=== PATIENT | female | born 1975 | race Caucasian/White ===

== ENCOUNTER 2017-06-30 00:27 | Emergency (ER) | payer SELFPAY ==
[2017-06-30] MEDS ORDERED: NS 1000 ML 1,000 ML IV ONE ×2 (00:30→02:49)
[2017-06-30] MEDS ORDERED: NS 1000 ML 1,000 ML ONE ×3 (00:34→02:55)
[2017-06-30 00:50] VITALS: BMI 20.7
--- NOTE | 2017-06-30 01:09 | DR.GENAD ---
HPI - PCP Primary Care Physician: nfd - Complaint/Symptoms Chief Complaint:: pt feels like she is going to black out. has not slept for a couple of days. hasn't not had an appetite for a couple of days. States she thinks she maybe dehydrated because she has been taking xanax for anxiety and she has been out of them for a while and she was nervous so she did some meth earlier today and she felt like she was having SOB, light headed like she was going to pass out with her hear beating fast about 1-2 hours ago. states she has not eaten anything in two days. She denies chest pain, SOB, nausea, vomiting cold or cough. States her last menstrual period was Jun 03. She denies any recent trauma. She denies vaginal bleeding or discharge. She denies hematuria or volodymyr. - Nurses notes reviewed Nurses Notes Review: Yes - Source History Provided: Patient - Mode of Arrival Mode of Arrival: Ambulatory - Timing Onset of Chief Complaint: 06/30/17 Came on: Gradually - Duration Duration: Intermittent How lon Duration: Hours - Location Location: weakness, dizzines - Severity Severity: Moderate - Modifying Factors Worsens:: nothing Improves:: nothing PMH - PMH Past Medical History: No Past Medical History: Hypertension Past Surgical History: No - Family History History of Family Medical Conditions: No Family Medical History: Diabetes Mellitus, Cancer, CA, Coronary Artery Disease, Heart Failure, Hypertension - Social History Does patient currently use any type of tobacco product: Yes Have you used tobacco products in the last 12 months: Yes Type of Tobacco Use: Cigarettes How many years tobacco product used: 18 Does any household member use tobacco: No Alcohol Use: None Do you use any recreational Drugs:: Yes (meth) Lives With: Mom Lives Where: Home - infectious screening Have you traveled outside the country in the last 6 months?: No Isolation: Standard ROS - Review of Systems Constitutional: No Symptoms Reported, Weakness, Fatigue, Loss of Appetite. negative: See HPI, Chills, Diaphoresis, Fever, Malaise, Irritable, Other Eyes: No Symptoms Reported ENTM: No Symptoms Reported. negative: See HPI, Ear Pain, Ear Discharge, Pulling on Ears, Hearing Loss, Nose Pain, Nose Discharge, Epistaxis, Nose Congestion, Mouth Pain, Mouth Swelling, Loose Teeth, Drooling, Throat Pain, Throat Swelling, Ear Foreign Body Respiratoy: No Symptoms Reported, Non-Productive Cough. negative: See HPI, Productive Cough, Moist Cough, Dry Cough, Hacking Cough, Barking Cough, Brassy Cough, Orthopnea, Short of Breath, Stridor, Wheezing, Hemoptysis, Other Cardiovascular: No Symptoms Reported, Chest Pain. negative: See HPI, Edema, Palpitations, Syncope, Cyanosis, Skin Mottling, Other Gastrointestinal/Abdominal: No Symptoms Reported. negative: See HPI, Abdominal Pain, Constipation, Diarrhea, Nausea, Vomiting, Food Intolerance, Other Genitourinary: No Symptoms Reported, Frequency. negative: See HPI, Discharge, Dysuria, Hematuria, Pain, Bleeding, Other Neurological: No Symptoms Reported, Anxiety, Emotional Problems, Dizziness. negative: See HPI, Depressed, Headache, Numbness, Paresthesia, Pre-existing Deficit, Seizure, Tingling, Tremors, Weakness, Problems Walking, Speech Problem , Other Musculoskeletal: No Symptoms Reported Integumentary: No Symptoms Reported Hematologic/Lymphatic: No Symptoms Reported Endocrine: No Symptoms Reported, Unexplained Weight Loss Psychiatric: No Symptoms Reported PE - Vital Signs Vitals: Temperature 97.3 F Pulse Rate 163 Respiratory Rate 20 Blood Pressure 87/65 O2 Sat by Pulse Oximetry 98 - General Limitations: No Limitations General Appearance: Alert, In Distress (moderate), Cachectic - Head Head Exam: Normal Inspection, Atraumatic, Normocephalic - Eyes Eye exam: Normal Appearance, PERRL, EOMI. negative: Scleral Icterus, Conjunctival Injection, Nystagmus, Miosis, Mydrasis, Periorbital Swelling, Periorbital Tenderness, Other - ENT ENT Exam: Normal Exam, Normal Oropharynx, Normal External Ear Exam, Mucous Membranes Moist, TM's Normal Bilaterally External Ear Exam: Normal External Inspection TM/Canal Exam: Bilateral Normal Nose Exam: Normal Nose Exam Mouth Exam: Normal Inspection Throat Exam: Normal Inspection. negative: Tonsillar Erythema, Tonsillomegaly, Tonsillar Exudate, R Peritonsillar Mass, L Peritonsillar Mass, Muffled Voice, Other - Neck Neck Exam: Normal Inspection, Full ROM, Trachea Midline. negative: Tenderness, Meningismus, Lymphadenopathy, Thyromegaly, Other - Chest Chest Inspection: Normal Inspection, Symmetric Chest Wall Rise. negative: Tenderness, Rash, Abscess, Other - Respiratory Respiratory Exam: Normal Lung Sounds Bilat Respiratory Exam: Bilateral Clear to Auscultation - Cardiovascular Cardiovascular Exam: Regular Rate, Normal Rhythm, Normal Heart Sounds. negative : Bradycardia, Tachycardia, Irregular Rhythm, Systolic Murmur, Diastolic Murmur , Rubs, Gallop, Clicks, JVD, +S1, +S2, +S3, +S4, Other - Abdominal Exam Abdominal Exam: Normal Inspection, Normal Bowel Sounds, Soft. negative: Distention, Tenderness, Guarding, Rebound, Rigidity, Dimnished Bowel Sounds, Hyperactive Bowel Sounds, Hypoactive Bowel Sounds, Organomegaly, Trauma, Incision, Ascites, Mass, Bruit, Pulsatile Mass, Hernia, Other Abdominal Tenderness: negative: RUQ, RLQ, LUQ, LLQ, Epigastrium, Suprapubic, Diffuse, Mild, Moderate, Severe, Other - Extremities Extremities Exam: Normal Inspection, Full ROM, Normal Capillary Refill. negative: Tenderness, Edema, Joint Swelling, Calf Tenderness, Other - Back Back Exam: Normal Inspection, Full ROM. negative: Tenderness, (R) CVA Tenderness, (L) CVA Tenderness, Muscle Spasm, Paraspinal Tenderness, Vertebral Tenderness, Rashes, (R) Sciatic Notch Tenderness, (L) Sciatic Notch Tendern, (R ) Straight Leg Raise, (L) Straight Leg Raise, Other - Neurologic Neurological Exam: Alert, Oriented X3, CN II-XII Intact, Reflexes Normal. negative: Normal Gait (gait not tested) - Psychiatric Psychiatric Exam: Normal Affect, Normal Mood. negative: Depressed, Agitated, Anxious, Flat Affect, Manic, Homicidal Ideation, Suicidal Ideation, Other - Skin Skin Exam: Warm, Dry, Intact, Normal Color ROR - Labs Reviewed Result Diagrams: 06/30/17 01:18 06/30/17:18 Laboratory: WBC 4.1 X10^3/uL (3.6-10.0) 06/30/17:18 RBC 4.35 X10^6/uL (3.5-5.4) 06/30/17:18 Hgb 12.8 g/dL (12.0-16.0) 06/30/17:18 Hct 38.2 % (36.0-47.0) 06/30/17:18 MCV 87.7 fL (80.0-100.0) 06/30/17:18 MCH 29.5 pg (27.0-34.0) 06/30/17 01:18 MCHC 33.6 g/dL (33.0-35.0) 06/30/17 01:18 RDW 15.9 % (11.6-16.5) 06/30/17 01:18 Plt Count 155 X10^3/uL (150.0-450.0) 06/30/17 01:18 MPV 8.4 fL (7.4-11.0) 06/30/17 01:18 Neut % 56.2 % (42.0-75.0) 06/30/17 01:18 Lymph % 29.6 % (21.0-51.0) 06/30/17 01:18 Cooper % 10.3 % (0.0-13.0) 06/30/17 01:18 Eos % 2.8 % (0.9-2.9) 06/30/17 01:18 Baso % 1.1 % (0.2-1.0) H 06/30/17 01:18 Neut # 2.3 x10^3/uL (2.2-4.8) 06/30/17 01:18 Lymph # 1.2 X10^3/uL (1.3-2.9) L 06/30/17 01:18 Cooper # 0.4 x10^3/uL (0.3-0.8) 06/30/17 01:18 Eos # 0.1 x10^3/uL (0.0-0.2) 06/30/17 01:18 Baso # 0.0 X10^3/uL (0.0-0.1) 06/30/17 01:18 Absolute Nucleated RBC 0.1 /100WBC 06/30/17 01:18 INR Target Range - 06/30/17 01:18 INR 1.12 (0.8-1.3) 06/30/17 01:18 PTT 35.4 SECONDS (22.9-36.5) 06/30/17 01:18 PTT Comment - 06/30/17 01:18 Sodium 141 mmol/L (136-145) 06/30/17 01:18 Corrected Sodium TNP 06/30/17 01:18 Potassium 3.8 mmol/L (3.5-5.1) 06/30/17 01:18 Chloride 107 mmol/L (98-107) 06/30/17 01:18 Carbon Dioxide 24.6 mmol/L (21-32) 06/30/17 01:18 BUN 19 mg/dL (7-18) H 06/30/17 01:18 Creatinine 0.78 mg/dL (0.55-1.02) 06/30/17 01:18 Est GFR (MDRD) Af Amer > 60 (>60) 06/30/17 01:18 Est GFR (MDRD) Non-Af > 60 (>60) 06/30/17 01:18 Glucose 102 mg/dL (65-99) H 06/30/17 01:18 Calcium 8.1 mg/dL (8.5-10.1) L 06/30/17 01:18 Corrected Calcium 8.7 mg/dL (8.5-10.1) 06/30/17 01:18 Magnesium 1.8 mg/dL (1.7-2.9) 06/30/17 01:18 Total Bilirubin 0.50 mg/dL (0.2-1.0) 06/30/17 01:18 AST 10 Units/L (15-37) L 06/30/17 01:18 ALT 16 Units/L (12-78) 06/30/17 01:18 Alkaline Phosphatase 73 Units/L (46-116) 06/30/17 01:18 Creatine Kinase 50 Units/L (26-192) 06/30/17 01:18 CK-MB (CK-2) < 1.0 ng/mL (0-4.0) 06/30/17 01:18 CK/CKMB % Calc 2.0 % (<4) 06/30/17 01:18 Troponin I < 0.02 ng/mL (0-1.5) 06/30/17 01:18 Total Protein 7.2 g/dL (6.4-8.2) 06/30/17 01:18 Albumin 3.3 g/dL (3.4-5.0) L 06/30/17 01:18 Globulin 3.9 g/dL (2.5-4.5) 06/30/17 01:18 Albumin/Globulin Ratio 0.8 Ratio (1.1-2.1) L 06/30/17 01:18 Triglycerides 88 mg/dL (0-150) 06/30/17 01:18 Cholesterol 160 mg/dL (0-200) 06/30/17 01:18 LDL Cholesterol, Calc 71 mg/dL (0-100) 06/30/17 01:18 HDL Cholesterol 71 mg/dL (40-60) H 06/30/17 01:18 Cholesterol/HDL Ratio 2.3 (0.0-5.0) 06/30/17 01:18 Specimen Type Clean catch urine 06/30/17 00:57 Urine Color Yellow (YELLOW) 06/30/17 00:57 Urine Appearance Cloudy (CLEAR) 06/30/17 00:57 Urine pH 5.0 (5.0 - 8.0) 06/30/17 00:57 Ur Specific [place] 1.030 (1.000-1.030) 06/30/17 00:57 Urine Protein 2+ (NEGATIVE) 06/30/17 00:57 Urine Glucose (UA) Negative (NEGATIVE) 06/30/17 00:57 Urine Ketones 1+ (NEGATIVE) 06/30/17 00:57 Urine Occult Blood 2+ (NEGATIVE) 06/30/17 00:57 Urine Nitrite Positive (NEGATIVE) 06/30/17 00:57 Urine Bilirubin 1+ (NEGATIVE) 06/30/17 00:57 Urine Urobilinogen Normal (NORMAL) 06/30/17 00:57 Ur Leukocyte Esterase 3+ (NEGATIVE) 06/30/17 00:57 Urine RBC 5-10 /HPF (NEGATIVE) 06/30/17 00:57 Urine WBC 60-80 /HPF (NEGATIVE) 06/30/17 00:57 Ur Squamous Epith Cells Few /HPF (NEGATIVE) 06/30/17 00:57 Urine Bacteria 4+ /HPF (NEGATIVE) 06/30/17 00:57 Ur Culture Indicated? Yes/culture set up 06/30/17 00:57 Urine Opiates Screen Negative (NEG=<300) 06/30/17 00:57 Urine Methadone Screen Negative (NEG=<300) 06/30/17 00:57 Ur Barbiturates Screen Negative (NEG=<200) 06/30/17 00:57 Ur Phencyclidine Scrn Negative (NEG=<25) 06/30/17 00:57 Ur Amphetamines Screen Positive (NEG=<1000) A 06/30/17 00:57 U Benzodiazepines Scrn Positive (NEG=<200) A 06/30/17 00:57 Urine Cocaine Screen Negative (NEG=<300) 06/30/17 00:57 U Marijuana (THC) Screen Negative (NEG=<50) 06/30/17 00:57 - EKG Rate: 93 Elizabeth: Normal Rhythm: NSR Block: None Hypertrophy: None ST: Old, Ant, Infarct, Nonsp - Diagnosis Discharge Problem: Dehydration, multiple drug usage - amphetamine, Benzo, hypotension improved Urinary tract infection Qualifiers: Urinary tract infection type: acute cystitis Hematuria presence: without hematuria Qualified Code(s): N30.00 - Acute cystitis without hematuria - Discharge Plan Disposition: HOME, SELF-CARE Condition: Stable Prescriptions: Ciprofloxacin HCl [CIPRO 500 MG TAB *] 500 mg PO Q12H PRN #20 tab PRN Reason: - Follow ups/Referrals Follow ups/Referrals: NFD,None [Primary Care Provider] - 3 days MARYAM CASTRO [STAFF PHYSICIAN] - 3 days - Instructions Instructions: Dehydration, Adult, [id number], Urinary Tract Infection, Adult , Stimulant Use Disorder-Amphetamines, Benzodiazepine Withdrawal
[2017-06-30 01:11] LABS: BILIRUBIN,URINE 1+ (NEGATIVE); BLOOD/HEMOGLOBIN,URINE 2+ (NEGATIVE); GLUCOSE, URINE NEGATIVE (NEGATIVE); KETONES,URINE 1+ (NEGATIVE); LEUKOCYTE ESTERASE ,URINE 3+ (NEGATIVE); NITRITES,URINE POSITIVE (NEGATIVE); PROTEIN,URINE 2+ (NEGATIVE); UROBILINOGEN,URINE NORMAL (NORMAL)
[2017-06-30 01:28] LABS: BASOPHILS % (AUTO) 1.1 % (0.2-1.0); EOSINOPHILS # (AUTO) 0.1 x10^3/uL (0.0-0.2); EOSINOPHILS % (AUTO) 2.8 % (0.9-2.9); HEMATOCRIT 38.2 % (36.0-47.0); HEMOGLOBIN 12.8 g/dL (12.0-16.0); LYMPHOCYTES # (AUTO) 1.2 X10^3/uL (1.3-2.9); LYMPHOCYTES % (AUTO) 29.6 % (21.0-51.0); MEAN CORPUSCULAR HEMOGLOBIN 29.5 pg (27.0-34.0); MEAN CORPUSCULAR HGB CONC 33.6 g/dL (33.0-35.0); MEAN CORPUSCULAR VOLUME 87.7 fL (80.0-100.0); MEAN PLATELET VOLUME 8.4 fL (7.4-11.0); MONOCYTES # (AUTO) 0.4 x10^3/uL (0.3-0.8); MONOCYTES % (AUTO) 10.3 % (0.0-13.0); NEUTROPHILS # (AUTO) 2.3 x10^3/uL (2.2-4.8); NEUTROPHILS % (AUTO) 56.2 % (42.0-75.0); PLATELET COUNT 155 X10^3/uL (150.0-450.0); RED BLOOD COUNT 4.35 X10^6/uL (3.5-5.4); RED CELL DISTRIBUTION WIDTH 15.9 % (11.6-16.5); WHITE BLOOD COUNT 4.1 X10^3/uL (3.6-10.0)
[2017-06-30 01:34] LABS: APPEARANCE,URINE CLOUDY (CLEAR); BACTERIA,URINE 4+ /HPF (NEGATIVE); COLOR,URINE YELLOW (YELLOW); SQUAMOUS EPITHELIAL CELL,UR FEW /HPF (NEGATIVE)
[2017-06-30 01:43] LABS: BLOOD UREA NITROGEN 19 mg/dL (7-18); CALCIUM 8.1 mg/dL (8.5-10.1); CARBON DIOXIDE 24.6 mmol/L (21-32); CHLORIDE 107 mmol/L (98-107); CREATININE 0.78 mg/dL (0.55-1.02); GLUCOSE 102 mg/dL (65-99); SODIUM 141 mmol/L (136-145); TROPONIN I < 0.02 ng/mL (0-1.5); eGFR BLACK RACES > 60 (>60); eGFR NON BLACK RACES > 60 (>60)
[2017-06-30 01:48] LABS: ALANINE AMINOTRANSFERASE 16 Units/L (12-78); ALBUMIN 3.3 g/dL (3.4-5.0); ALKALINE PHOSPHATASE 73 Units/L (46-116); ASPARTATE AMINO TRANSFERASE 10 Units/L (15-37); COR CA(FOR HYPOALB) 8.7 mg/dL (8.5-10.1); CREATINE KINASE 50 Units/L (26-192); CREATINE KINASE MB < 1.0 ng/mL (0-4.0); MAGNESIUM 1.8 mg/dL (1.7-2.9); TOTAL PROTEIN 7.2 g/dL (6.4-8.2)
[2017-06-30] MEDS ORDERED: NS 1000 ML 1,000 ML IV SCH (02:00)
[2017-06-30 02:12] LABS: CHOL/HDL RATIO 2.3 (0.0-5.0)
[2017-06-30] MEDS ORDERED: ROCEPHIN VIAL 1 GM 1 GM in NS 50 ML IV + SPIKE MINIBAG* 50 ML IV ONE (02:32)
[2017-06-30] MEDS ORDERED: ROCEPHIN VIAL 1 GM ONE (02:38)
[2017-06-30] MEDS ORDERED: NS 50 ML IV + SPIKE MINIBAG* 50 ML IV ONE (02:39)
--- NOTE | 2017-06-30 03:17 | RAD ---
Chest, one view Indication: Chest pain Comparison: None Findings: The heart size is normal. The lungs are clear without focal infiltrate or pleural effusion . The bony thorax is unremarkable. Impression: No acute chest process. Reported By:
[2017-06-30 04:03] VITALS: BP 99/57
[2017-06-30] MEDS ORDERED: LEVAQUIN TAB 500 MG PO SCH (09:00)
== END 2017-06-30 03:55 | disposition home or self-care (01) ==
LOC: ER 00:27
DX: F15.20 Other stimulant dependence, uncomplicated (principal); N30.00 Acute cystitis without hematuria; E86.0 Dehydration; I95.9 Hypotension, unspecified
CPT/HCPCS: 36415; 71010; 80053; 80061; 80307; 81001; 82550; 82553; 83735; 84484; 85025; 85610; 85730; 87086; 87088; 87186; 93005; 93010; 96365; 96367; 96374; 99283; A4222; G0434; J0696